=== PATIENT | female | born 1970 | race Caucasian/White ===

== ENCOUNTER 2020-12-21 12:28 | Observation (INO) ==
--- NOTE | 2020-12-20 09:06 | Anesthesiology Consultation ---
Date of Service December 20, 2020 Assessment & Plan (1) Encounter for pre-operative examination: COVID Status: As of 12/20 nurse assessment, patient denies travel to endemic area, known exposure/sick contacts, or symptoms of COVID19. She was positive for COVID-19 in September and had loss of taste/smell, headache, fatigue. Patient works at [employer]. Preoperative COVID19 testing completed on 12/17/20, results NEGATIVE. No preoperative testing was ordered by surgeon. Will order EKG, CBC, BMP for AM DOS. (Pt > 50, BMI > 40). Chart Review Chart Review: Acceptable Risk for Surgery (pending pre op testing AM DOS) and Patient NOT seen in Pre Admission Testing History Surgery Operation Date: 12/21/20 12:50 Proposed Procedures p Exam Under Anesthesia, Dilation and Curettage, - Karthik Jerome MD s Hysteroscopy, Endometrial Polyp Removal, Novasure Ablation - Karthik Jerome MD Height/Weight Height: 5 ft 4 in Weight: 120.202 kg Allergies Allergy/AdvReac Type Severity Reaction Status Date / Time Sulfa (Sulfonamide Allergy Mild Rash Verified 12/20/20 08:35 Antibiotics) codeine AdvReac Mild Nausea Verified 12/20/20 08:35 Medications Home Medications Medication Instructions Recorded Confirmed Last Taken escitalopram oxalate [Lexapro] 10 mg PO HS 12/20/20 12/20/20 Unknown omeprazole 20 mg PO QAM 12/20/20 12/20/20 Unknown Past Medical History Medical History Anxiety and depression GERD (gastroesophageal reflux disease) History of COVID-27 SEPTEMBER 2020 (SYMPTOMS>HEADACHE/LOSS OF TASTE/SMELL/FATIGUE) TESTED AT [facility]/AT WORK Past Family History Family History Other No significant family history Past Surgical History Surgical History Family history of reaction to anesthesia FATHER-WOKE UP IN MIDDLE OF SURGERY>ASPIRATED History of cholecystectomy [place] teeth removed Social History Smoking Status: Never smoker Do You Dip or Chew Tobacco: No Hx Alcohol Use: Yes Alcohol type: beer alcohol intake frequency: a few times a month substance use type: does not use
[~2020-12-21 12:28] MED LIST: LR 15ML/HR IV SCH
[2020-12-21 13:06] LABS: Hematocrit (blood only) 28.1 % (37-47); Hemoglobin 8.4 g/dL (12.0-16.0); Mean Corpuscular Hemoglobin 20.9 pg (25-34); Mean Corpuscular Volume 69.9 fL (80-100); Mean Platelet Volume 8.5 fL (7.4-10.4); Platelet Count 405 K/uL (130-400); RDW Coefficient of Variation 16.7 % (11.5-14.5); RDW Standard Deviation 42.8 fL (36.4-46.3); Red Blood Count 4.02 M/uL (4.2-5.4); White Blood Count 5.28 K/uL (4.8-10.8)
[2020-12-21 13:09] LABS: Mean Corpuscular Hgb Conc 29.9 g/dL (32-36)
[2020-12-21 13:27] LABS: BUN Creatinine Ratio 15.5 (10-20); Calcium 8.7 mg/dl (8.5-10.1); Creatinine Clr Calc Pharmacy 88.3 ml/min; Est GFR (African American) 79.4; Est GFR (Non-African American) 68.5; Potassium 3.8 mmol/L (3.5-5.1)
--- NOTE | 2020-12-21 15:33 | History & Physical Bridge Note ---
Date of Service December 21, 2020 History & Physical Bridge Note I have examined the patient, reviewed the History & Physical and in the interval since the performance of the History & Physical I have noted the following changes of clinical significance: no changes noted
[2020-12-21] MEDS ORDERED: MEPERIDINE HCL 25 MG/ML CARP/VIAL IV PRN (16:06)
[2020-12-21] MEDS ORDERED: HYDROmorphone INJ 1 MG/ML SYRINGE IV PRN (16:06)
[2020-12-21] MEDS ORDERED: ePHEDrine sulfate 50 MG/ML AMP IV PRN (16:06)
[2020-12-21] MEDS ORDERED: fentaNYL citrate 100 MCG/2 ML VIAL IV PRN (16:06)
[2020-12-21] MEDS ORDERED: LABETALOL HCL IV 5 MG/ML 20ML IV PRN (16:06)
[2020-12-21] MEDS ORDERED: PHENYLEPHRINE 100MCG/ML 5ML SYR IV PRN (16:06)
[2020-12-21] MEDS ORDERED: ONDANSETRON INJ 2 MG/ML 2 ML VIAL IV PRN ×2 (16:06→17:42)
[2020-12-21] MEDS ORDERED: ATROPINE SULFATE 0.1 MG/ML 10ML SYR IV PRN (16:06)
[2020-12-21] MEDS ORDERED: miSOPROStoL 200 MCG TAB ONE (16:27)
[2020-12-21] MEDS ORDERED: LIDOCAINE HCL 2% 2 ML VIAL/AMP(20MG/ML) INFIL ONE (16:29)
[2020-12-21] MEDS ORDERED: fentaNYL citrate 100 MCG/2 ML VIAL ONE (16:29)
[2020-12-21] MEDS ORDERED: PROPOFOL IV EMULSION 10 MG/ML 20 ML VIAL IV ONE ×2 (16:29→17:00)
[2020-12-21] MEDS ORDERED: DEXAMETHASONE SOD INJ 4 MG/ML VIAL ONE (16:29)
[2020-12-21] MEDS ORDERED: MIDAZOLAM HCL 1 MG/ML 2ML VIAL ONE (16:29)
[2020-12-21] MEDS ORDERED: SUCCINYLCHOLINE CHLORIDE 20 MG/ML 10 ML VIAL IV ONE (16:56)
[2020-12-21] MEDS ORDERED: ACETAMINOPHEN 325 MG TAB PO PRN (17:42)
[2020-12-21] MEDS ORDERED: oxyCODONE/ACETAMINOPHEN 5mg/325mg TAB PO PRN ×2 (17:42)
[2020-12-21] MEDS ORDERED: KETOROLAC 30 MG/ML VIAL IV PRN (17:42)
[2020-12-21] MEDS ORDERED: SIMETHICONE 80 MG CHEW PO PRN (17:42)
[2020-12-21] MEDS ORDERED: MAGNESIUM HYDROXIDE SUSP 30 ML UDC PO PRN (17:42)
--- NOTE | 2020-12-21 17:42 | Post Operative Brief Note ---
Immediate Post Op Note v1 Date of Surgery December 21, 2020 Pre & Post Diagnosis Operation Date: 12/21/20 14:05 Pre-Op Diagnosis: Mennorrhagia Post-Op Diagnosis: Mennorrhagia I identified the patient and participated in the time-out.: Yes Procedure Operation Date: 12/21/20 14:05 Actual Procedures p Exam Under Anesthesia, Dilation and Curettage, - Karthik Jerome MD s Hysteroscopy,Dilation and Curretage, Endometrial Polyp Removal, Novasure Ablation - Karthik Jerome MD Surgeon Karthik Jerome MD [employer] reid menjivar Estimated Blood Loss 10 Findings Consistent with Post-Op Diagnosis
--- NOTE | 2020-12-21 18:17 | Electrocardiogram Report ---
Test Reason : Blood Pressure : / mmHG Vent. Rate : 083 BPM Atrial Rate : 083 BPM P-R Int : 160 ms QRS Dur : 082 ms QT Int : 384 ms P-R-T Axes : 068 052 049 degrees QTc Int : 451 ms Normal sinus rhythm Normal ECG No previous ECGs available Confirmed by Ankit Pak ([id number]) on 12/21/2020 6:17:12 PM Referred By: Karthik Jerome Confirmed By:Ankit Pak
--- NOTE | 2020-12-21 18:31 | Anesthesiology Progress Note ---
Date of Service December 21, 2020 Anesthesia Post Procedure Vital Signs Vital Signs: Temp Pulse Pulse Resp BP BP Pulse Ox 12/21/20 18:15 37.0 C 86 16 144/70 H 98 12/21/20 18:05 37.0 C 93 H 18 156/72 H 99 12/21/20 17:55 89 15 150/65 H 100 12/21/20 17:45 91 H 17 125/76 100 12/21/20 17:38 36.8 C 96 H 16 124/85 100 12/21/20 13:17 37.2 C 93 H 18 142/72 H 98 Transfer of Care Handoff Completed per policy Notes Mental Status: alert / awake / arousable Patient Amnestic to Procedure: Yes Nausea / Vomiting: adequately controlled Pain: adequately controlled Airway Patency, RR, SpO2: stable & adequate BP & HR: stable & adequate Hydration State: stable & adequate Anesthetic Complications: no major complications apparent and Pt Satisfied with anesthetic care Notes: The patient underwent a D and C with hysteroscopy. On induction she was given Propofol 200 mg followed by propofol 100 mg in order to place an LMA. During placement of the LMA, the patient was noted to cough with a small amount of green nonparticulate fluid noted around the LMA. The patient's mouth was suctioned. The LMA was seated properly but a decision was made to replace the LMA with an ETT to check for any signs of aspiration. The patient was given succinylcholine and the patient was easily intubated with MAC 3 blade, Grade 2 view. A FOB was used to look into the trachea and upper bronchi. The patient had some white sputum but no green fluid or particulate matter was identified in the patient's airway. The patient's SpO2 remained in the high 90s to 100 and her lungs were clear. The patient tolerated the procedure well but was noted to cough and have a brief desaturation upon extubation. The patient was brought to the PACU where she was stable but noted to be coughing. Her SpO2 has remained in the high 90s to 100 on room air in the PACU. Dr. Jerome was made aware of the patient's situation and in consultation with Dr. Rivera we agreed that the patient should be placed on observation overnight to watch for any aspiration pneumonitis or pneumonia. The patient agreed with this plan. The patient will have continuous pulse oximetry overnight. Dr. Jerome will follow up for any fever or hypoxemia in the morning. The patient was told to go to the ER if she develops any fever or shortness of breath over the next few days to which she agreed. Dr. Jerome spoke to the patient's family about her situation.
[2020-12-21] MEDS ORDERED: DOCUSATE SODIUM 100 MG CAP PO SCH (21:00)
--- NOTE | 2020-12-22 02:40 | Operative Report (OR) ---
DATE OF OPERATION: 12/21/2020 INDICATION FOR SURGERY: This is a 50-year-old with abnormal bleeding. PREOPERATIVE DIAGNOSES: 1. Abnormal bleeding. 2. Endometrial polyps seen on ultrasound. POSTOPERATIVE DIAGNOSES: 1. Abnormal bleeding. 2. Endometrial polyps seen on ultrasound. PROCEDURES: 1. Exam under anesthesia. 2. Hysteroscopy. 3. Dilation and curettage. 4. Endometrial resection of the endometrium using MyoSure. 5. NovaSure endometrial ablation. COMPLICATIONS: None. DRAINS: None. ANESTHESIA: General. ESTIMATED BLOOD LOSS: 10 mL. INTRAVENOUS FLUIDS: 800 mL. URINE OUTPUT: 100 mL clear urine at the end of the procedure. PATHOLOGY: 1. Endometrial resection with MyoSure. 2. Sharp endometrial curettings. FINDINGS: Normal female escutcheon. No lesions on the vulva, vagina, or cervix. Uterus showed proliferative endometrium. No other gross normal anomaly seen in the uterus. Both ostia seen of the uterus. DISPOSITION: Stable to recovery room. DESCRIPTION OF PROCEDURE: The patient was taken to the operating room where she was prepped and draped in normal sterile fashion in dorsal lithotomy position. Bladder was catheterized and 100 mL of clear urine was obtained. A weighted speculum was placed in the vagina. Alfonso retractor was used to retract the anterior part of vagina. Uterus was sounded. Cervix was dilated to a size 8. Hysteroscopy was performed. Findings of hysteroscopy are as dictated above. The MyoSure device was passed through the outflow tract. Resection of the endometrium performed. The MyoSure device was removed, the hysteroscope was removed as well, and endometrial ablation was performed. Uterine sound showed uterine cavity to be 5.0, cavity width is 4.5. Endometrial cavity was confirmed via NovaSure device. Ablation was performed with no difficulty. Hysteroscopy after ablation confirmed the endometrium as sharp. Scope was removed from the uterus. All instruments were removed from the vagina and the uterus and accounted for x2. The patient was stable and was sent to recovery in stable condition. There was a suspicion of aspiration, which anesthesia will dictate that part of the procedure. I attest to the content of the Intraoperative Record and any orders documented therein. Any exception s are noted below.
[2020-12-22] MEDS: IBUPROFEN 600 MG TAB PO PRN ×2 (03:10→09:09)
[2020-12-22 06:28] LABS: Hematocrit (blood only) 27.3 % (37-47); Hemoglobin 7.9 g/dL (12.0-16.0); Mean Corpuscular Hemoglobin 20.4 pg (25-34); Mean Corpuscular Hgb Conc 28.9 g/dL (32-36); Mean Corpuscular Volume 70.4 fL (80-100); Mean Platelet Volume 8.9 fL (7.4-10.4); Platelet Count 444 K/uL (130-400); RDW Coefficient of Variation 16.9 % (11.5-14.5); RDW Standard Deviation 43.3 fL (36.4-46.3); Red Blood Count 3.88 M/uL (4.2-5.4); White Blood Count 8.97 K/uL (4.8-10.8)
[2020-12-22 06:47] LABS: Basophils # (auto) 0.01 K/uL (0-0.2); Basophils % (auto) 0.1 %; Eosinophils # (auto) 0.01 K/uL (0-0.5); Eosinophils % (auto) 0.1 %; Hypochromasia Present; Immature Granulocytes # (auto) 0.01 K/uL (0.00-0.02); Immature Granulocytes % (auto) 0.1 %; Lymphocytes # (auto) 0.83 K/uL (1.2-3.4); Lymphocytes % (auto) 9.3 %; Microcytosis Present; Monocytes % (auto) 2.2 %; Neutrophils # (auto) 7.91 K/uL (1.4-6.5); Neutrophils % (auto) 88.2 %
[2020-12-22 06:48] LABS: BUN Creatinine Ratio 12.8 (10-20); Calcium 9.1 mg/dl (8.5-10.1); Creatinine Clr Calc Pharmacy 88.3 ml/min; Est GFR (African American) 79.4; Est GFR (Non-African American) 68.5; Potassium 4.1 mmol/L (3.5-5.1)
--- NOTE | 2020-12-22 08:31 | Anesthesiology Progress Note ---
Date of Service December 22, 2020 Anesthesia Post Procedure Vital Signs Vital Signs: Temp Pulse Pulse Pulse Resp BP BP 12/22/20 07:15 36.7 C 89 18 122/76 12/22/20 03:10 36.7 C 97 H 20 132/78 12/21/20 23:25 12/21/20 23:05 36.7 C 92 H 20 151/66 H 12/21/20 21:40 36.9 C 89 18 142/81 H 12/21/20 20:30 36.9 C 86 18 160/87 H 12/21/20 19:50 36.6 C 83 18 174/87 H 12/21/20 19:15 37.0 C 84 16 147/76 H 12/21/20 19:00 37.0 C 84 16 130/74 12/21/20 18:45 37.0 C 92 H 23 130/73 12/21/20 18:30 37.0 C 84 17 121/83 12/21/20 18:15 37.0 C 86 16 144/70 H 12/21/20 18:05 37.0 C 93 H 18 156/72 H 12/21/20 17:55 89 15 150/65 H 12/21/20 17:45 91 H 17 125/76 12/21/20 17:38 36.8 C 96 H 16 124/85 12/21/20 13:17 37.2 C 93 H 18 142/72 H Pulse Ox Pulse Ox Pulse Ox 12/22/20 07:15 99 99 12/22/20 03:10 99 12/21/20 23:25 95 12/21/20 23:05 98 12/21/20 21:40 97 12/21/20 20:30 98 12/21/20 19:50 97 97 12/21/20 19:15 99 12/21/20 19:00 99 12/21/20 18:45 99 12/21/20 18:30 98 12/21/20 18:15 98 12/21/20 18:05 99 12/21/20 17:55 100 12/21/20 17:45 100 12/21/20 17:38 100 12/21/20 13:17 98 Pain Intensity Bilateral Abdomen: Pain Intensity: 2 Notes Mental Status: alert / awake / arousable Patient Amnestic to Procedure: Yes Nausea / Vomiting: adequately controlled Pain: adequately controlled Airway Patency, RR, SpO2: stable & adequate BP & HR: stable & adequate Hydration State: stable & adequate Anesthetic Complications: no major complications apparent and Pt Satisfied with anesthetic care Notes: Patient sitting comfortably on the side of the bed. Denies SOB/CP currently or throughout the night. VSS, SPO2 99% on RA. No further distress noted.
--- NOTE | 2020-12-22 08:53 | Progress Note ---
Date of Service December 22, 2020 Assessment & Plan Admission and Anticipated Discharge Date Admission Date: December 21, 2020 Subjective Pt doing well improved coughing afebrile reviewed labs d/c home with instructions Results & Data ([facility]) Vital Signs (Past 12 Hours) Vital Signs Temp Pulse Pulse Resp BP Pulse Ox Pulse Ox 12/22/20 08:41 36.7 C 89 18 122/76 99 12/22/20 07:15 36.7 C 89 18 122/76 99 99 12/22/20 03:10 36.7 C 97 H 20 132/78 99 12/21/20 23:25 12/21/20 23:05 36.7 C 92 H 20 151/66 H 98 12/21/20 21:40 36.9 C 89 18 142/81 H 97 Pulse Ox 12/22/20 08:41 12/22/20 07:15 12/22/20 03:10 12/21/20 23:25 95 12/21/20 23:05 12/21/20 21:40
--- NOTE | 2020-12-22 10:07 | Discharge Summary (DS) ---
HISTORY OF PRESENT ILLNESS: This is a 50-year-old with a history of menorrhagia and endometrial polyps seen on ultrasound who underwent scheduled surgery. Patient underwent the following procedures: 1. Exam under anesthesia. 2. Hysteroscopy. 3. Dilation and curettage. 4. Endometrial polyp resection. 5. NovaSure endometrial ablation. Surgery was otherwise unremarkable. Anesthesia, however, was concerned with possible aspiration. A decision was therefore made to keep patient overnight for observation. The patient did well and was afebrile throughout the night. This morning, the patient was able to tolerate p.o. food and meds. The patient has no abnormal coughing. She is being discharged home in stable condition. PAST MEDICAL HISTORY: History of the followin. Anemia. 2. Anxiety and depression. 3. Gastroesophageal reflux disease. 4. History of COVID-19. 5. Morbid obesity. PAST SURGICAL HISTORY: The patient has a history of cholecystectomy and dental surgery. SOCIAL HISTORY: The patient lives with family. Denies drug, alcohol use. ALLERGIES: THE PATIENT IS ALLERGIC TO SULFA AND CODEINE. HOSPITAL COURSE: As dictated above. This is unremarkable. Labs on 12/22/2019 showed hemoglobin of 7.9, hematocrit of 27.3. PHYSICAL EXAMINATION: HEART: S1, S2, regular rhythm and rate. LUNGS: Clear to auscultation bilaterally. ABDOMEN: Nontender, nondistended. VITAL SIGNS: This morning, blood pressure is 122/76, pulse is 89, temperature 36.7. PLAN ON DISCHARGE: The patient has been discharged home in stable condition. She was given instructions regarding activity, diet, followup appointment and medication.
== END 2020-12-22 10:37 | disposition home or self-care (01) ==
LOC: 4N 12:28 → ASU 12:28